=== PATIENT | female | born 1980 | race Caucasian/White ===

== ENCOUNTER 2020-07-15 06:34 | Day surgery (SDC) | payer OTHER | END 2020-07-15 19:50 | disposition home or self-care (01) | LOC: CIR.AMB 06:34 | PROVIDERS: ATTEND Surgery | DX: C50.412 Malignant neoplasm of upper-outer quadrant of left female breast (principal); N62 Hypertrophy of breast; N64.81 Ptosis of breast; Z90.13 Acquired absence of bilateral breasts and nipples; Z41.1 Encounter for cosmetic surgery; Z20.828 Contact with and (suspected) exposure to other viral communicable diseases ==

== ENCOUNTER 2021-01-13 06:37 | Day surgery (SDC) | payer OTHER ==
[~2021-01-13 06:37] MED LIST: ADULT LOW DOSE81 M1 PO; TAMOX PO; [UNRECOGNIZED DRUG - CODE]
== END 2021-01-13 15:20 | disposition home or self-care (01) ==
LOC: CIR.AMB 06:37
PROVIDERS: ATTEND Plastic Surgery
DX: N65.1 Disproportion of reconstructed breast (principal); Z90.13 Acquired absence of bilateral breasts and nipples; Z41.1 Encounter for cosmetic surgery; Z20.822 Contact with and (suspected) exposure to COVID-19
CPT/HCPCS: 19342; C1789; 15771

== ENCOUNTER 2024-12-18 05:55 | Day surgery (SDC) | payer OTHER ==
[2024-12-16 11:38] VITALS: BP 119/77
[~2024-12-18] VITALS: Ht 162.6 cm; Wt 97.5 kg
[2024-12-18] MEDS ORDERED: CEFAZOLIN SODIUM 1,000 MG VIAL ONE (15:19)
[2024-12-18] MEDS ORDERED: CHLORHEXIDINE GLUCONATE 120 ML BOTTLE TOP ONE (15:19)
== END 2024-12-18 21:15 | disposition home or self-care (01) ==
LOC: CIR.AMB 05:55
PROVIDERS: ATTEND Surgery
DX: C50.612 Malignant neoplasm of axillary tail of left female breast (principal); C79.89 Secondary malignant neoplasm of other specified sites; C76.1 Malignant neoplasm of thorax; Z90.13 Acquired absence of bilateral breasts and nipples; Z88.8 Allergy status to other drugs, medicaments and biological substances; Z88.6 Allergy status to analgesic agent; Z91.02 Food additives allergy status; J45.909 Unspecified asthma, uncomplicated

== ENCOUNTER 2025-01-08 05:35 | Day surgery (SDC) | payer OTHER ==
[2025-01-07 13:09] LABS: PH,URINE 5.5 (5.0-8.0); URINE APPEARANCE Clear; URINE BILIRRUBIN Negative (NEGATIVE); URINE BLOOD Negative; URINE COLOR Yellow; URINE GLUCOSE Negative (NEGATIVE); URINE KETONE Negative (NEGATIVE); URINE LEUKOCYTE Negative; URINE NITRATE Negative; URINE PROTEIN Negative (NEGATIVE); URINE UROBILINOGEN 0.2 E.U./dl
[2025-01-07 13:10] LABS: URINE BACTERIA 303.5 uL (0.0-1933); URINE EPITHELIAL CELLS 5.2 uL (0.0-38.8); URINE RBC 7.3 uL (0.0-20.8); URINE WBC 4.5 uL (0.0-23.2)
[2025-01-07 13:11] LABS: HEMATOCRIT 32.9 % (36.0-45.00); HEMOGLOBIN 11.4 g/dL (12.0-15.00); MEAN CELL VOLUME 86.9 fL (80.00-100.00); MEAN CORPUSCULAR HEMOGLOBIN 30.1 pg (27.00-32.0); MEAN CORPUSCULAR HGB CONC 34.6 g/dl (32.0-36.0); PLATELET COUNT 264 K/uL (150-450); RED BLOOD COUNT 3.78 M/uL (4.00-6.00); RED CELL DISTRIBUTION WIDTH 12.6 % (11.5-14.5)
[2025-01-07 13:33] LABS: ALBUMIN 3.5 gm/dL (3.4-5.0); BILIRUBIN TOTAL 0.32 mg/dL (0.3-1.2); CALCIUM 8.8 mg/dL (8.5-10.1); CREATININE SERUM 0.66 mg/dL (0.55-1.02); GFR 97.29; GLOBULINA 3.9 G/DL (2.4-3.5); POTASSIUM 3.84 mEq/L (3.5-5.1); TOTAL PROTEIN 7.4 gm/dL (6.4-8.2)
[2025-01-07 13:39] LABS: INR 1.02; PARTIAL THROMBOPLASTIN TIME 27.1 SECONDS (22.0-34.0); PROTHROMBIN TIME 11.1 SECONDS (9.0-11.5)
[2025-01-08] MEDS ORDERED: CEFAZOLIN SODIUM 1,000 MG VIAL ONE (09:49)
[2025-01-08] MEDS ORDERED: CHLORHEXIDINE GLUCONATE 120 ML BOTTLE TOP ONE ×2 (13:17→14:45)
[2025-01-08] MEDS ORDERED: LIDOCAINE HCL 1%/EPINEPHRINE 20ML VIAL IJ ONE ×2 (13:19→14:45)
[2025-01-08] MEDS ORDERED: BUPIVACAINE HCL/Mpf 0.5% 10ML VIAL ONE (13:20)
[2025-01-08] MEDS ORDERED: BUPIVACAINE HCL 30 ML VIAL IV ONE (14:45)
[2025-01-08] MEDS ORDERED: CEFAZOLIN SODIUM 1,000 MG VIAL IV ONE (14:45)
[2025-01-08] MEDS ORDERED: SUGAMMADEX SODIUM 200 MG/2 ML VIAL IV ONE ×4 (16:03→16:15)
[2025-01-08] MEDS ORDERED: ALBUTEROL SULFATE 3 ML/2.5 MG AMPUL.NEB IH ONE (17:06)
== END 2025-01-08 18:55 | disposition home or self-care (01) ==
LOC: CIR.AMB 05:35
PROVIDERS: ATTEND Surgery
DX: C50.412 Malignant neoplasm of upper-outer quadrant of left female breast (principal)

== ENCOUNTER 2025-10-08 06:29 | Day surgery (SDC) | payer OTHER ==
[2025-10-05 09:14] LABS: BASO % 1.5 % (0.1-1.2); EOS # 0.21 (0.04-0.54); EOS % 4.4 % (0.7-7.0); LYMPH # 1.11 (1.18-3.74); LYMPH % 23.2 % (19.3-53.1); MEAN PLATELET VOLUME 9.70 fl (9.4-12.4); MONO # 0.33 (0.24-0.82); MONO % 6.9 % (4.7-12.5); NEUT # 3.06 (1.56-6.13); NEUT % 64.0 % (34.0-71.1); RED CELL DISTRIBUTION WIDTH 12.0 % (11.6-14.4)
[2025-10-05 09:36] LABS: URINE APPEARANCE Clear; URINE BILIRRUBIN Negative (NEGATIVE); URINE BLOOD Trace; URINE COLOR Yellow; URINE GLUCOSE Negative (NEGATIVE); URINE KETONE Negative (NEGATIVE); URINE LEUKOCYTE Negative; URINE NITRATE Negative; URINE PROTEIN Negative (NEGATIVE); URINE UROBILINOGEN 0.2 E.U./dl
[2025-10-05 09:39] LABS: URINE EPITHELIAL CELLS 5.3 uL (0.0-38.8); URINE RBC 10.9 uL (0.0-20.8); URINE WBC 2.5 uL (0.0-23.2)
[2025-10-05 09:46] LABS: INR 1.01
[2025-10-05 09:47] LABS: URINE CAST 0.00 uL (0.0-1.40)
[2025-10-05 09:52] LABS: ALT/SGPT 51.0 U/L (12-78); AST/SGOT 31.0 U/L (15-37); BILIRUBIN TOTAL 0.41 mg/dL (0.3-1.2); BUN CREA RATIO 14.0 (7.0-25.0); CREATININE SERUM 0.63 mg/dL (0.55-1.02); GFR 102.19; GLOBULINA 4.1 G/DL (2.4-3.5); GLUCOSE FASTING 102.0 mg/dL (65-100); OSMOLALITY SERUM 280.0 MOSM/KG (275-295)
[2025-10-05 09:56] LABS: COVID-19 AG NEGATIVE (NEGATIVE)
[2025-10-08] MEDS ORDERED: CEFAZOLIN SODIUM 1,000 MG VIAL ONE (08:07)
[2025-10-08] MEDS ORDERED: CHLORHEXIDINE GLUCONATE 120 ML BOTTLE TOP ONE (11:00)
== END 2025-10-08 14:40 | disposition home or self-care (01) ==
LOC: CIR.AMB 06:29
PROVIDERS: ATTEND Surgery
DX: C50.412 Malignant neoplasm of upper-outer quadrant of left female breast (principal)